=== PATIENT | female | born 1990 | race African-American/Black ===

== ENCOUNTER 2023-06-17 16:25 | Emergency (ER) | payer OTHER ==
[~2023-06-17] VITALS: Ht 165.1 cm; Wt 84.0 kg
[2023-06-17 16:29] VITALS: BP 136/76; PULSE 72; RESP 18; TEMP 98.1; O2SAT 97
== END 2023-06-17 18:31 | disposition home or self-care (01) ==
LOC: ER 16:25
DX: S80.11XA Contusion of right lower leg, initial encounter (principal); X58.XXXA Exposure to other specified factors, initial encounter; Y93.89 Activity, other specified; Y92.89 Other specified places as the place of occurrence of the external cause; Y99.8 Other external cause status
CPT/HCPCS: 99281